=== PATIENT | female | born 1980 | race Caucasian/White ===

== ENCOUNTER → 2018-06-27 | Outpatient (CLI) | payer BC ==
--- NOTE | 2018-06-27 11:08 | US ---
EXAMINATION TYPE: US abdomen complete DATE OF EXAM: 06/27/2018 COMPARISON: NONE CLINICAL HISTORY: R10.11 RUQ Abd Pain,R10.12 LUQ And Pain. EXAM MEASUREMENTS: Liver Length: 16.8 cm Gallbladder Wall: 0.2 cm CBD: 0.3 cm Spleen: 10.3 cm Right Kidney: 10.9 x 4.0 x 4.4 cm Left Kidney: 11.3 x 5.2 x 4.9 cm Some exam limitations to overlying bowel gas. Pancreas: Obscured by bowel gas Liver: some attenuating, otherwise appears wnl Gallbladder: seen with a couple shadowing stones Evidence for sonographic Dillard's sign: some tenderness CBD: wnl Spleen: wnl Right Kidney: wnl Left Kidney: wnl Upper IVC: wnl Abd Aorta: Obscured by overlying bowel gas The liver is free of mass lesion. The intrahepatic portion of the IVC and proximal abdominal aorta ar e within normal limits. Common bile duct is unremarkable. The visualized portions of the pancreas ar e homogenous. The spleen is unremarkable. Kidneys are symmetric and free of hydronephrosis. No jakub al lesions are seen. IMPRESSION: 1. Uncomplicated cholelithiasis.
== END ==
LOC: RADUSWWP 10:14
PROVIDERS: ATTEND Family Medicine
DX: K80.20 Calculus of gallbladder without cholecystitis without obstruction (principal)
CPT/HCPCS: 76700

== ENCOUNTER → 2020-12-28 | Outpatient (CLI) | payer BC ==
--- NOTE | 2020-12-28 13:41 | MM ---
Reason for exam: screening (asymptomatic). Baseline mammogram. History: Took hormonal contraceptives for 6 years beginning at age 20. Physical Findings: Nurse did not find any significant physical abnormalities on exam. MG 3D Screening Mammo W/Cad Bilateral CC and MLO view(s) were taken. The breast tissue is heterogeneously dense. This may lower the sensitivity of mammography. There is no discrete abnormality. No significant new findings when compared with previous films. These results were verbally communicated with the patient and result sheet given to the patient on 12/28/20. ASSESSMENT: Negative, BI-RAD 1 RECOMMENDATION: Routine screening mammogram of both breasts in 1 year.
== END | disposition home or self-care (01) ==
LOC: RADMAMWWP 12:52
PROVIDERS: ATTEND Family Medicine
DX: Z12.31 Encounter for screening mammogram for malignant neoplasm of breast (principal)
CPT/HCPCS: 77063; 77067

== ENCOUNTER → 2022-01-15 | Outpatient (CLI) | payer BC ==
--- NOTE | 2022-01-16 11:17 | MM ---
Reason for exam: screening (asymptomatic). Last mammogram was performed 1 year and 1 month ago. History: Taking hormonal contraceptives beginning at age 20. Physical Findings: A clinical breast exam by your physician is recommended on an annual basis and results should be correlated with mammographic findings. MG 3D Screening Mammo W/Cad Bilateral CC and MLO view(s) were taken. Prior study comparison: December 28, 2020, bilateral MG 3d screening mammo w/cad. The breast tissue is heterogeneously dense. This may lower the sensitivity of mammography. Finding: There are indeterminate calcifications in the subareolar position of the right breast. There is a chronic nodularity in the right breast. ASSESSMENT: Incomplete: need additional imaging evaluation, BI-RAD 0 RECOMMENDATION: Special view mammogram of the right breast. [facility] will attempt to contact patient to return for supplemental views.
== END | disposition home or self-care (01) ==
LOC: RADMAMWWP 10:28
PROVIDERS: ATTEND Family Medicine
DX: Z12.31 Encounter for screening mammogram for malignant neoplasm of breast (principal)
CPT/HCPCS: 77063; 77067

== ENCOUNTER → 2022-01-18 | Outpatient (CLI) | payer BC ==
--- NOTE | 2022-01-18 10:59 | MM ---
Reason for exam: additional evaluation requested from abnormal screening. Last mammogram was performed less than 1 month ago. History: Taking hormonal contraceptives beginning at age 20. Physical Findings: A clinical breast exam by your physician is recommended on an annual basis and results should be correlated with mammographic findings. MG 3D Work Up W/Cad RT CC with magnification and LM with magnification view(s) were taken of the right breast. Prior study comparison: January 15, 2022, bilateral MG 3d screening mammo w/cad. December 28, 2020, bilateral MG 3d screening mammo w/cad. There are scattered fibroglandular densities. Anterior faint calcifications are not well demonstrated on magnification views. 6 month follow up recommended. Results were given to the patient verbally at the time of the exam. ASSESSMENT: Probably benign, BI-RAD 3 RECOMMENDATION: Follow-up diagnostic mammogram of the right breast in 6 months.
== END | disposition home or self-care (01) ==
LOC: RADMAMWWP 09:10
PROVIDERS: ATTEND Family Medicine
DX: R92.8 Other abnormal and inconclusive findings on diagnostic imaging of breast (principal)
CPT/HCPCS: 77061; 77065

== ENCOUNTER → 2022-07-23 | Outpatient (CLI) | payer BC ==
--- NOTE | 2022-07-23 09:18 | MM ---
Reason for Exam: Follow-up at short interval from prior study. Last screening mammogram was performed 6 month(s) ago. Patient History: Menarche at age 16. First Full-Term at age 19. Premenopausal. Patient has history of breast feeding. Currently using Hormonal Contraceptives, starting at age 20. Last menstrual period: 06/30/2022 Risk Values: Brittney 5 year model risk: 0.4%. NCI Lifetime model risk: 6.6%. Prior Study Comparison: 12/28/2020 Bilateral Screening Mammogram, [facility]. 01/15/2022 Bilateral Screening Mammogram, [facility]. 01/18/2022 Right Diagnostic Mammogram, [facility]. Tissue Density: Right: The breast tissue is heterogeneously dense. This may lower the sensitivity of mammography. Findings: Analyzed By CAD. Stable well-circumscribed round mass toward the right axilla. No new mass or distortion right breast. Overall Assessment: Negative, BI-RAD 1 Management: Screening Mammogram of both breasts in 6 months. Back on annual bilateral schedule. Results were given to the patient verbally at the time of exam. Electronically signed and approved by: Frandy Deutsch M.D.
== END | disposition home or self-care (01) ==
LOC: RADMAMWWP 08:20
PROVIDERS: ATTEND Family Medicine
DX: R92.8 Other abnormal and inconclusive findings on diagnostic imaging of breast (principal)
CPT/HCPCS: 77061; 77065

== ENCOUNTER → 2023-01-22 | Outpatient (CLI) | payer BC ==
--- NOTE | 2023-01-23 09:36 | MM ---
Reason for Exam: Screening (asymptomatic). Last screening mammogram was performed 12 month(s) ago. Patient History: Menarche at age 16. First Full-Term at age 19. Premenopausal. Patient has history of breast feeding. Currently using Hormonal Contraceptives, starting at age 20. Last menstrual period: 01/11/2023 Risk Values: Brittney 5 year model risk: 0.4%. NCI Lifetime model risk: 6.6%. Prior Study Comparison: 01/15/2022 Bilateral Screening Mammogram, [facility]. 01/18/2022 Right Diagnostic Mammogram, [facility]. 07/23/2022 Right MG 3D diag mammo w/cad RT, [facility]. Tissue Density: The breast tissue is heterogeneously dense. This may lower the sensitivity of mammography. Findings: Analyzed By CAD. Stable appearing probable intramammary lymph nodes in the bilateral breasts lateral aspects on CC view. There is no suspicious group of microcalcifications or new suspicious mass in either breast. Overall Assessment: Negative, BI-RAD 1 Management: Screening Mammogram of both breasts in [address] [facility] will attempt to contact patient to return for supplemental views and ultrasound if indicated. Patient should continue monthly self-breast exams. A clinical breast exam by your physician is recommended on an annual basis. This exam should not preclude additional follow-up of suspicious palpable abnormalities. Note on Brittney scores and lifetime risk: 1. A Brittney score greater than 3% is considered moderate risk. If this is the case, consider specialist referral to assess eligibility for a risk reducing agent. 2. If overall lifetime risk for the development of breast cancer is 20% or higher, the patient may qualify for future screening with alternating mammogram and breast MRI. Electronically signed and approved by: Alhaji Wolff DO
== END | disposition home or self-care (01) ==
LOC: RADMAMWWP 09:46
PROVIDERS: ATTEND Family Medicine
DX: Z12.31 Encounter for screening mammogram for malignant neoplasm of breast (principal)
CPT/HCPCS: 77063; 77067

== ENCOUNTER → 2024-03-31 | Outpatient (CLI) | payer BC ==
--- NOTE | 2024-03-31 10:58 | XR ---
EXAMINATION TYPE: XR chest 2V DATE OF EXAM: 03/31/2024 COMPARISON: NONE TECHNIQUE: PA and lateral views submitted. HISTORY: Pain FINDINGS: The lungs are clear and there is no pneumothorax, pleural effusion, or focal pneumonia. Heart size normal and no overt failure. Osseous structures demonstrate hypertrophic and degenerative changes of the spine. Surgical clips gallbladder fossa. IMPRESSION: 1. No acute process.
== END | disposition home or self-care (01) ==
LOC: RADXRYALE 09:09
PROVIDERS: ATTEND Physician Assistant Medical
DX: R07.1 Chest pain on breathing (principal)
CPT/HCPCS: 71046

== ENCOUNTER → 2024-04-24 | Outpatient (CLI) | payer BC | END | disposition home or self-care (01) | LOC: LABPRL 09:20 | PROVIDERS: ATTEND Physician Assistant Medical | DX: Z00.00 Encounter for general adult medical examination without abnormal findings (principal); Z13.29 Encounter for screening for other suspected endocrine disorder; Z13.228 Encounter for screening for other metabolic disorders; Z13.220 Encounter for screening for lipoid disorders; E78.2 Mixed hyperlipidemia; Z79.899 Other long term (current) drug therapy | CPT/HCPCS: 80053; 80061; 84443; 85025 ==

== ENCOUNTER → 2025-02-12 | Outpatient (CLI) | payer BC ==
--- NOTE | 2025-02-17 08:55 | CT ---
EXAMINATION TYPE: CT angio abdomen pelvis DATE OF EXAM: 02/12/2025 10:21 AM COMPARISON: CT abdomen pelvis most recent from CLINICAL INDICATION: Female, 44 years old with history of R10.12 LUQ PAIN, LUQ PAIN/ RIB CAGE PAIN, TECHNIQUE: Multiple thin slice sub-millimeter images were obtained through the abdomen and pelvis aft er administration of contrast. Patient was given Isovue 370, 75 cc intravenously. 3-D reconstructed images and maximum intensity projection images were obtained. One or more CT dose reduction strategies were utilized during this examination. Contrast used:100 mL mL of Isovue 370 without and with IV Contrast, (none if empty) Oral contrast used: without Oral Contrast (none if empty) CT DLP: 2065 mGycm, Automated exposure control for dose reduction was used. FINDINGS: CTA Abdomen and pelvis: Abdominal aorta is patent to the bifurcation. No aneurysmal dilatation or dissection is evident. Regine ac axis and superior mesenteric artery origins are normal. Renal artery origins are normal. Inferior mesenteric artery is normal. Common femoral arteries are normal. The bifurcation and internal and external iliac vessels. This is patent to the common femoral arteries. Profunda femoris and superficial femoral arteries within the f [id number] are normal. VISCERA ABDOMEN: Liver: Unremarkable. Gallbladder and Bile ducts: Gallbladder is surgically absent. Pancreas: Unremarkable. Spleen: Unremarkable. Adrenal glands: Unremarkable. Kidneys and Ureters: No hydronephrosis or renal calculus. PELVIS Bladder: Unremarkable. Reproductive: Uterus and ovaries are unremarkable.. ABDOMEN & PELVIS Stomach and Bowel: No evidence of bowel obstruction or bowel wall thickening. Appendix is normal Peritoneum: No evidence of pneumoperitoneum, free fluid, or adenopathy. Vasculature: Unremarkable. No aortic aneurysm. Musculoskeletal: The osseous structures appear intact. LOWER CHEST: No significant findings. IMPRESSION: 1. No evidence of vascular occlusion. No aortic dissection or aneurysm evident. 2. Visualized CT abdomen and pelvis appears unremarkable. No suspicious abnormality to account for l eft upper quadrant pain [facility], , 02/17/2025 8:53 AM
== END | disposition home or self-care (01) ==
LOC: RADCTMAIN 09:05
PROVIDERS: ATTEND Family Medicine
DX: R10.12 Left upper quadrant pain (principal)
CPT/HCPCS: 74174; Q9967

== ENCOUNTER → 2025-02-18 | Outpatient (CLI) | payer BC ==
--- NOTE | 2025-02-18 08:33 | MM ---
Reason for Exam: Screening (asymptomatic). Last mammogram was performed 1 year(s) and 1 month(s) ago. Patient History: Menarche at age 16. First Full-Term at age 19. Premenopausal. Patient has history of breast feeding. Currently using Hormonal Contraceptives, starting at age 20. Last menstrual period: 02/11/2025 Risk Values: Brittney 5 year model risk: 0.5%. NCI Lifetime model risk: 6.5%. Prior Study Comparison: 07/23/2022 Right MG 3D diag mammo w/cad RT, [facility]. 01/22/2023 Bilateral MG 3D screening mammo w/cad, [facility]. 01/29/2024 Bilateral MG 3D screening mammo w/cad, [facility]. Tissue Density: The breasts are heterogeneously dense, which may obscure small masses. Findings: Analyzed By CAD. There is no suspicious group of microcalcifications or new suspicious mass in either breast. Stable lymph node right axilla. Overall Assessment: Benign, BI-RAD 2 Management: Screening Mammogram of both breasts in 1 year. . Patient should continue monthly self-breast exams. A clinical breast exam by your physician is recommended on an annual basis. This exam should not preclude additional follow-up of suspicious palpable abnormalities. Note on Brittney scores and lifetime risk: 1. A Brittney score greater than 3% is considered moderate risk. If this is the case, consider specialist referral to assess eligibility for a risk reducing agent. 2. If overall lifetime risk for the development of breast cancer is 20% or higher, the patient may qualify for future screening with alternating mammogram and breast MRI. [facility], , 02/18/2025 8:31 AM. Electronically signed and approved by: Cristhian Evans M.D. Radiologis
== END | disposition home or self-care (01) ==
LOC: RADMAMWWP 08:02
PROVIDERS: ATTEND Family Medicine
DX: Z12.31 Encounter for screening mammogram for malignant neoplasm of breast (principal); R92.333 Mammographic heterogeneous density, bilateral breasts; Z79.3 Long term (current) use of hormonal contraceptives
CPT/HCPCS: 77063; 77067

== ENCOUNTER → 2025-03-02 | Outpatient (CLI) | payer BC ==
--- NOTE | 2025-03-02 09:16 | US ---
EXAMINATION TYPE: US abdomen complete DATE OF EXAM: 03/02/2025 COMPARISON: CT 02/12/2025 CLINICAL INDICATION: Female, 44 years old with history of R10.12 LEFT UPPER QUADRANT PAIN; Pt states LUQ pain x 3 weeks. GB absent TECHNIQUE: Grayscale and color Doppler imaging of the abdomen was performed. FINDINGS: EXAM MEASUREMENTS: Liver Length: 16.3 cm CBD: 0.5 cm, color Doppler imaging was utilized to isolate the common bile duct for measurement. Spleen: 8.6 cm Right Kidney: 11.3 x 4.3 x 4.8 cm Left Kidney: 11.2 x 6.1 x 5.4 cm Pancreas: wnl, tail obscured by overlying bowel gas Liver: wnl, no dilated ducts, masses or cysts. Gallbladder: Surgically absent Evidence for sonographic Dillard's sign: No CBD: wnl Spleen: wnl Right Kidney: wnl, No hydronephrosis, calculi or masses seen Left Kidney: wnl, No hydronephrosis, calculi or masses seen Upper IVC: wnl Abd Aorta: wnl IMPRESSION: Status post cholecystectomy. No biliary ductal dilatation. Normal size spleen. No hydronephrosis on e ither side. [facility], , 03/02/2025 9:14 AM
== END | disposition home or self-care (01) ==
LOC: RADUSWWP 08:36
PROVIDERS: ATTEND Family Medicine
DX: R10.12 Left upper quadrant pain (principal); Z90.49 Acquired absence of other specified parts of digestive tract
CPT/HCPCS: 76700

== ENCOUNTER 2025-04-06 06:55 | Day surgery (SDC) | payer BC ==
[2025-03-31 10:38] VITALS: BMI 40.3
[2025-04-06] MEDS: IV FLUID CONTINUATION 1,000 ML IV ONE ×2 (07:37→08:02)
[2025-04-06 07:41] VITALS: TEMP 96.9
[2025-04-06] MEDS: LACTATED RINGERS 1,000 ML IV SCH (07:42)
[2025-04-06] MEDS ORDERED: PROPOFOL 10 MG/ML 20 ML VIAL IV ONE (08:02)
[2025-04-06] MEDS ORDERED: LIDOCAINE 1% INJ 10MG/ML (20 ML MDV) ONE (08:02)
--- NOTE | 2025-04-06 08:24 | P.PCN ---
Date of Procedure: 04/06/25 Procedure(s) Performed: PREOPERATIVE DIAGNOSIS: Left upper quadrant pain, screening POSTOPERATIVE DIAGNOSIS: Gastritis with superficial erosions, small rectal polyp PROCEDURE: 1. EGD with biopsy 2. Colonoscopy with snare polypectomy ANESTHESIA: MAC SURGEON: Cody Veliz M.D. SPECIMENS: Antrum, polyp ENDOSCOPIC PROCEDURE: The patient was on the endoscopy table in the left decubitus position. The Olympus gastroscope was inserted into the oropharynx and passed under direct visualization to the region of the third portion of the duodenum. From that point the scope was slowly withdrawn inspecting all surfaces carefully. There were no neoplastic inflammatory or polypoid lesions throughout the duodenum. The pylorus was widely patent. The stomach was carefully inspected. There was a few small superficial erosions in the antrum and prepyloric region. Biopsies were taken. Retroflexion revealed a normal hiatus. The esophagus was then carefully examined. There were no neoplastic inflammatory or polypoid lesions throughout the visualized esophagus. The patient was kept on the endoscopy table in the left decubitus position. The Olympus colonoscope was inserted into the anus and passed under direct visualization to the base of the cecum. The appendiceal orifice was visualized. From that point the scope was slowly withdrawn inspecting all surfaces carefully. There were no neoplastic inflammatory or polypoid lesions throughout the cecum, ascending, transverse, descending, and sigmoid colon. In the rectum a small polyp was seen and removed using snare without cautery technique. This measured about 4 mm in size. The remainder of the rectum was normal. Digital rectal examination was normal. The patient was taken to the recovery room in stable condition per anesthesia guidelines. RECOMMENDATIONS: Resume diet. Await biopsy results. Await MRI results. Resume trial of antiacid therapy.
[2025-04-06 08:29] VITALS: RESP 14
[2025-04-06 08:46] VITALS: BP 152/90; PULSE 74
== END 2025-04-06 09:04 | disposition home or self-care (01) ==
LOC: ORWHC2ENDO 06:55
PROVIDERS: ATTEND Surgery
DX: Z12.11 Encounter for screening for malignant neoplasm of colon (principal); K29.50 Unspecified chronic gastritis without bleeding; D12.8 Benign neoplasm of rectum; J45.909 Unspecified asthma, uncomplicated; E78.5 Hyperlipidemia, unspecified; Z88.0 Allergy status to penicillin; Z88.6 Allergy status to analgesic agent; Z79.899 Other long term (current) drug therapy
CPT/HCPCS: 81025; 45385; 43239; J2003; J2704; 88305